=== PATIENT | male | born 1955 | race Caucasian/White ===

== ENCOUNTER 2019-12-08 01:22 | Observation (INO) | payer BC, OTHER ==
[2019-12-08] VITALS (12 sets, daily range): BP systolic 122–182; BP diastolic 77–103
[~2019-12-08] VITALS: Ht 180.3 cm; Wt 59.0 kg
[2019-12-08 01:18] LABS: BASOPHILS # (AUTO) 0.1 (0.0-0.1); BASOPHILS % 1.1 % (0.0-1.0); EOSINOPHILS # (AUTO) 0.3 (0.0-0.4); EOSINOPHILS % 5.5 % (0.0-6.0); HEMATOCRIT 44.9 % (38.2-49.6); HEMOGLOBIN 15.8 g/dL (14.0-18.0); LYMPHOCYTES # (AUTO) 1.2 (1.0-3.2); LYMPHOCYTES % 19.7 % (18.0-39.1); MEAN CORPUSCULAR HEMOGLOBIN 32.6 pg (28-32); MEAN CORPUSCULAR HGB CONC 35.2 g/dL (31-35); MEAN CORPUSCULAR VOLUME 92.8 fL (81-99); MONOCYTES # (AUTO) 0.7 (0.2-0.8); MONOCYTES % 11.1 % (4.4-11.3); NEUTROPHILS # (AUTO) 3.9 (2.1-6.9); NEUTROPHILS % 62.3 % (38.7-80.0); PLATELET COUNT 288 x10e3/uL (140-360); RED BLOOD COUNT 4.84 x10e6/uL (4.3-5.7); RED CELL DISTRIBUTION WIDTH 11.6 % (11.7-14.4)
[2019-12-08 01:32] LABS: INR 0.84; PARTIAL THROMBOPLASTIN TIME 29.9 seconds (23.8-35.5); PROTHROMBIN TIME 11.9 seconds (11.9-14.5)
[2019-12-08 01:40] LABS: ALANINE AMINOTRANSFERASE 12 IU/L (0-55); ALBUMIN 3.9 g/dL (3.5-5.0); ALBUMIN/GLOBULIN RATIO 1.4 (0.8-2.0); ALKALINE PHOSPHATASE 31 IU/L (40-150); ANION GAP 15.1 mmol/L (8-16); CALCIUM 9.4 mg/dL (8.4-10.2); CARBON DIOXIDE 26 mmol/L (22-29); CHLORIDE 99 mmol/L (98-107); CREATINE KINASE 130 IU/L (30-200); CREATININE, SERUM 0.82 mg/dL (0.72-1.25); EST GLOMERULAR FILTRATION RATE > 60 ML/MIN (60-); GLUCOSE 89 mg/dL (74-118); POTASSIUM 4.1 mmol/L (3.5-5.1); SODIUM 136 mmol/L (136-145)
[2019-12-08] MEDS ORDERED: ASPIRIN 81 MG CHEW TAB PO ONE (01:45)
[2019-12-08 01:52] LABS: BLOOD UREA NITROGEN 12 mg/dL (7-26); BUN/CREATININE RATIO 15 (6-25)
[2019-12-08] MEDS ORDERED: MORPHINE SULFATE 2 MG/ML SYR 1ML IV PRN (02:00)
[2019-12-08] MEDS ORDERED: SODIUM CHLORIDE FLUSH 10 ML SYR INJ PRN (02:00)
[2019-12-08] MEDS ORDERED: ONDANSETRON HCL INJ 2MG/ML 2ML 2 MG/ML VIAL IV PRN (02:00)
[2019-12-08] MEDS ORDERED: NITROGLYCERIN 0.4 MG SUBL SL PRN (02:00)
[2019-12-08] MEDS: FAMOTIDINE 20 MG/2 ML VIAL IV SCH ×2 (02:02→14:00)
[2019-12-08] MEDS: METOPROLOL TARTRATE 25 MG TAB PO SCH ×3 (02:02→17:14)
[2019-12-08] MEDS ORDERED: ACETAMINOPHEN 325 MG TAB PO PRN (05:45)
[2019-12-08] MEDS ORDERED: NIFEDIPINE CR 30 MG TAB PO SCH (05:45)
[2019-12-08] MEDS: NIFEDIPINE CR 30 MG TAB PO SCH ×3 (08:00→21:00)
[2019-12-08 08:28] LABS: CHOL/HDL RATIO 2.1 (3.9-4.7)
[2019-12-08] MEDS ORDERED: MELOXICAM 7.5 MG TAB PO SCH (09:00)
[2019-12-08] MEDS ORDERED: NICOTINE 21 MG/EA PATCH TOP SCH (09:00)
[2019-12-08] MEDS ORDERED: ASPIRIN 81 MG ENTERIC COATED PO SCH (09:00)
[2019-12-08] MEDS: ALPRAZOLAM 0.5 MG TAB PO SCH ×3 (09:23→21:00)
[2019-12-08 10:43] LABS: CREATINE KINASE MB 2.3 ng/mL (0-5.0)
[2019-12-08] MEDS ORDERED: ENOXAPARIN SOD INJ 40 MG/0.4 ML SYR SC SCH (17:00)
[2019-12-08 18:18] LABS: CREATINE KINASE MB 2.1 ng/mL (0-5.0)
[2019-12-08] MEDS ORDERED: NICOTINE PATCH1 EAC5 TOP (21:14)
[2019-12-08] MEDS ORDERED: MELOXICAM7.5 MG PO (21:14)
[2019-12-08] MEDS ORDERED: PROCARDIA XL30 MG PO (21:14)
[2019-12-08] MEDS ORDERED: ASPIRIN81 MG PO (21:14)
[2019-12-09] MEDS ORDERED: NICOTINE 21 MG TOP SCH (09:00)
[2019-12-09] MEDS ORDERED: ASPIRIN 81 MG CHEW TAB PO SCH (09:00)
[2019-12-09] MEDS ORDERED: NIFEDIPINE CR 30 MG TAB PO SCH (09:00)
[2019-12-09] MEDS ORDERED: MELOXICAM 7.5 MG TAB PO SCH (09:00)
== END 2019-12-08 22:12 | disposition home or self-care (01) ==
LOC: ER 01:33 → ERHOLD 02:23 → MED/SURG3 02:28
PROVIDERS: ADMIT Internal Medicine; ATTEND Internal Medicine
DX: R07.89 Other chest pain (principal); F17.200 Nicotine dependence, unspecified, uncomplicated; R63.6 Underweight; Z68.1 Body mass index [BMI] 19.9 or less, adult; Z11.59 Encounter for screening for other viral diseases
CPT/HCPCS: 36415; 71045; 80053; 80061; 82550; 82553; 84484; 85025; 85610; 85730; 93306; 99284; G0378; J1650; U0002

== ENCOUNTER 2020-01-30 14:10 | Inpatient (IN) | payer OTHER ==
[~2020-01-30] VITALS: Ht 180.3 cm; Wt 63.5 kg
[~2020-01-30 14:10] MED LIST: ASPIRIN81 MG PO; MELOXICAM7.5 MG PO; NICOTINE PATCH1 EAC5 TOP; PROCARDIA XL30 MG PO
[2020-01-30] MEDS ORDERED: SODIUM CHLORIDE 0.9% 1000ML 1,000 ML IV STA (14:20)
[2020-01-30] MEDS ORDERED: CLOPIDOGREL BISULFATE 75 MG TAB PO NR (14:30)
[2020-01-30] MEDS ORDERED: ONDANSETRON HCL INJ 2MG/ML 2ML 2 MG/ML VIAL IV NR (14:30)
[2020-01-30] MEDS ORDERED: ASPIRIN 81 MG CHEW TAB PO ONE (14:30)
[2020-01-30] MEDS ORDERED: MORPHINE SULFATE INJ 2 MG/ML SYR IV NR (14:30)
[2020-01-30 14:31] LABS: BASOPHILS # (AUTO) 0.1 (0.0-0.1); BASOPHILS % 0.4 % (0.0-1.0); EOSINOPHILS # (AUTO) 0.1 (0.0-0.4); EOSINOPHILS % 0.6 % (0.0-6.0); HEMATOCRIT 33.5 % (38.2-49.6); LYMPHOCYTES # (AUTO) 0.5 (1.0-3.2); LYMPHOCYTES % 4.6 % (18.0-39.1); MEAN CORPUSCULAR HEMOGLOBIN 31.3 pg (28-32); MEAN CORPUSCULAR HGB CONC 35.8 g/dL (31-35); MEAN CORPUSCULAR VOLUME 87.5 fL (81-99); MONOCYTES # (AUTO) 0.7 (0.2-0.8); MONOCYTES % 6.4 % (4.4-11.3); NEUTROPHILS % 87.6 % (38.7-80.0); PLATELET COUNT 309 x10e3/uL (140-360); RED BLOOD COUNT 3.83 x10e6/uL (4.3-5.7); RED CELL DISTRIBUTION WIDTH 12.7 % (11.7-14.4)
[2020-01-30] MEDS ORDERED: HYDROMORPHONE 1MG/1ML INJ IV STA (14:34)
[2020-01-30] MEDS ORDERED: HEPARIN SOD (PORCINE) 1000 UNIT/ML 30ML ONE (14:39)
[2020-01-30] MEDS ORDERED: MORPHINE SULFATE INJ 4 MG/ML INJ 1ML ONE (14:39)
[2020-01-30] MEDS ORDERED: ONDANSETRON HCL INJ 2MG/ML 2ML 2 MG/ML VIAL ONE (14:39)
[2020-01-30] MEDS ORDERED: LIDOCAINE HCL 2% LOCAL 20 ML VIAL ONE (14:40)
[2020-01-30] MEDS ORDERED: FENTANYL CITRATE/PF 100MCG/2 ML INJ ONE (14:40)
[2020-01-30] MEDS ORDERED: MIDAZOLAM HCL 2 MG/2 ML VIAL ONE (14:40)
[2020-01-30] MEDS ORDERED: SODIUM CHLORIDE 0.9% 50ML 50 ML ONE (14:40)
[2020-01-30] MEDS ORDERED: BIVALRIUDIN 250 MG/VIAL VIAL IV ONE (14:40)
[2020-01-30 14:41] LABS: INR 0.89; PROTHROMBIN TIME 12.5 seconds (11.9-14.5)
[2020-01-30] MEDS ORDERED: IOPAMIDOL 370 MG/ML 200 ML INFUS..BTL INJ ONE (14:41)
[2020-01-30] MEDS ORDERED: HEPARIN SOD/SOD CHLORIDE 2,000 ML ONE (14:41)
[2020-01-30 14:43] LABS: PARTIAL THROMBOPLASTIN TIME 22.9 seconds (23.8-35.5)
[2020-01-30] MEDS ORDERED: SODIUM CHLORIDE 0.9% 1000ML 1,000 ML ONE (14:44)
[2020-01-30 14:50] LABS: ALANINE AMINOTRANSFERASE 14 IU/L (0-55); ALBUMIN 4.1 g/dL (3.5-5.0); ALBUMIN/GLOBULIN RATIO 1.6 (0.8-2.0); ALKALINE PHOSPHATASE 12 IU/L (40-150); ANION GAP 16.8 mmol/L (8-16); BLOOD UREA NITROGEN 7 mg/dL (7-26); BUN/CREATININE RATIO 7 (6-25); CALCIUM 9.2 mg/dL (8.4-10.2); CARBON DIOXIDE 23 mmol/L (22-29); CHLORIDE 99 mmol/L (98-107); CREATINE KINASE 118 IU/L (30-200); CREATININE, SERUM 0.98 mg/dL (0.72-1.25); EST GLOMERULAR FILTRATION RATE > 60 ML/MIN (60-); GLUCOSE 158 mg/dL (74-118); MAGNESIUM 1.4 MG/DL (1.3-2.1); POTASSIUM 3.8 mmol/L (3.5-5.1); SODIUM 135 mmol/L (136-145)
[2020-01-30] MEDS ORDERED: EPTIFIBATIDE 75mg 100ML 100 ML ONE (15:08)
[2020-01-30] MEDS ORDERED: EPTIFIBATIDE 20 ML ONE (15:08)
[2020-01-30] MEDS ORDERED: CEFAZOLIN SOD 2 GM/D5W 50ML 50 ML IV ONE (16:19)
[2020-01-30] MEDS ORDERED: EPTIFIBATIDE 2 MG/1 ML 10ML VIAL IV ONE (17:00)
[2020-01-30] MEDS: METOPROLOL TARTRATE 25 MG TAB PO SCH (17:00)
[2020-01-30] MEDS ORDERED: HYDROCODONE/APAP 5MG-325MG TAB PO PRN (17:00)
[2020-01-30] MEDS ORDERED: ACETAMINOPHEN 325 MG TAB PO PRN (17:00)
[2020-01-30 17:30] VITALS: BP 100/74
[2020-01-30 18:12] VITALS: BP 100/74
[2020-01-30 18:15] VITALS: BP 100/74
[2020-01-30 18:37] LABS: CREATINE KINASE MB 186.7 ng/mL (0-5.0)
[2020-01-30 20:00] VITALS: BP 84/67
[2020-01-30] MEDS ORDERED: ZOLPIDEM TARTRATE 5 MG TAB PO PRN (21:00)
[2020-01-30] MEDS: ATORVASTATIN 20 MG TAB PO SCH (21:42)
[2020-01-30 21:45] VITALS: BP 84/67
[2020-01-31] VITALS (8 sets, daily range): BP systolic 94–116; BP diastolic 65–80
[2020-01-31 04:38] LABS: BASOPHILS % 0.3 % (0.0-1.0); EOSINOPHILS # (AUTO) 0.2 (0.0-0.4); EOSINOPHILS % 1.5 % (0.0-6.0); HEMATOCRIT 29.1 % (38.2-49.6); HEMOGLOBIN 10.3 g/dL (14.0-18.0); LYMPHOCYTES # (AUTO) 0.5 (1.0-3.2); LYMPHOCYTES % 5.1 % (18.0-39.1); MEAN CORPUSCULAR HEMOGLOBIN 32.4 pg (28-32); MEAN CORPUSCULAR HGB CONC 35.4 g/dL (31-35); MEAN CORPUSCULAR VOLUME 91.5 fL (81-99); MONOCYTES # (AUTO) 0.7 (0.2-0.8); NEUTROPHILS # (AUTO) 8.9 (2.1-6.9); NEUTROPHILS % 85.8 % (38.7-80.0); PLATELET COUNT 250 x10e3/uL (140-360); RED BLOOD COUNT 3.18 x10e6/uL (4.3-5.7); RED CELL DISTRIBUTION WIDTH 12.8 % (11.7-14.4)
[2020-01-31 04:59] LABS: ALANINE AMINOTRANSFERASE 44 IU/L (0-55); ALBUMIN 3.1 g/dL (3.5-5.0); ALBUMIN/GLOBULIN RATIO 1.3 (0.8-2.0); ALKALINE PHOSPHATASE 13 IU/L (40-150); ANION GAP 11.8 mmol/L (8-16); BLOOD UREA NITROGEN 7 mg/dL (7-26); BUN/CREATININE RATIO 9 (6-25); CALCIUM 8.2 mg/dL (8.4-10.2); CARBON DIOXIDE 24 mmol/L (22-29); CHLORIDE 103 mmol/L (98-107); CHOL/HDL RATIO 3.1 (3.9-4.7); CHOLESTEROL 143 MD/DL (0-199); CREATINE KINASE 2197 IU/L (30-200); CREATININE, SERUM 0.78 mg/dL (0.72-1.25); EST GLOMERULAR FILTRATION RATE > 60 ML/MIN (60-); GLUCOSE 107 mg/dL (74-118); HDL CHOLESTEROL 46 MG/DL (40-60); LDL CHOLESTEROL 72 MG/DL (60-130); POTASSIUM 3.8 mmol/L (3.5-5.1); SODIUM 135 mmol/L (136-145); TRIGLYCERIDES 123 MG/DL (0-149)
[2020-01-31] MEDS: METOPROLOL TARTRATE 25 MG TAB PO SCH ×2 (09:00→17:07)
[2020-01-31] MEDS: LOSARTAN POTASSIUM 100 MG TAB PO SCH ×2 (09:00→10:35)
[2020-01-31] MEDS: CLOPIDOGREL BISULFATE 75 MG TAB PO SCH (10:30)
[2020-01-31 14:51] LABS: CREATINE KINASE MB 102.4 ng/mL (0-5.0)
[2020-01-31] MEDS: ASPIRIN 81 MG ENTERIC COATED PO SCH (15:53)
[2020-01-31] MEDS: ATORVASTATIN 20 MG TAB PO SCH (21:06)
[2020-02-01 00:41] VITALS: BP 101/70
[2020-02-01 04:00] VITALS: BP 119/84
[2020-02-01 05:52] LABS: BASOPHILS % 0.3 % (0.0-1.0); EOSINOPHILS # (AUTO) 0.3 (0.0-0.4); EOSINOPHILS % 3.7 % (0.0-6.0); HEMATOCRIT 29.7 % (38.2-49.6); HEMOGLOBIN 10.5 g/dL (14.0-18.0); LYMPHOCYTES # (AUTO) 0.8 (1.0-3.2); MEAN CORPUSCULAR HEMOGLOBIN 31.6 pg (28-32); MEAN CORPUSCULAR HGB CONC 35.4 g/dL (31-35); MEAN CORPUSCULAR VOLUME 89.5 fL (81-99); MONOCYTES # (AUTO) 0.9 (0.2-0.8); MONOCYTES % 11.3 % (4.4-11.3); NEUTROPHILS # (AUTO) 5.8 (2.1-6.9); NEUTROPHILS % 74.4 % (38.7-80.0); PLATELET COUNT 268 x10e3/uL (140-360); RED BLOOD COUNT 3.32 x10e6/uL (4.3-5.7); RED CELL DISTRIBUTION WIDTH 12.5 % (11.7-14.4)
[2020-02-01 06:18] LABS: ANION GAP 12.7 mmol/L (8-16); BLOOD UREA NITROGEN 8 mg/dL (7-26); BUN/CREATININE RATIO 10 (6-25); CALCIUM 8.3 mg/dL (8.4-10.2); CARBON DIOXIDE 25 mmol/L (22-29); CHLORIDE 100 mmol/L (98-107); CREATININE, SERUM 0.84 mg/dL (0.72-1.25); EST GLOMERULAR FILTRATION RATE > 60 ML/MIN (60-); GLUCOSE 107 mg/dL (74-118); MAGNESIUM 1.7 MG/DL (1.3-2.1); POTASSIUM 3.7 mmol/L (3.5-5.1); SODIUM 134 mmol/L (136-145)
[2020-02-01] MEDS ORDERED: PANTOPRAZOLE SOD 40 MG TABEC PO SCH (07:30)
[2020-02-01 07:53] VITALS: BP 120/79
[2020-02-01] MEDS: CLOPIDOGREL BISULFATE 75 MG TAB PO SCH (08:21)
[2020-02-01] MEDS: METOPROLOL TARTRATE 25 MG TAB PO SCH (08:21)
[2020-02-01] MEDS: ASPIRIN 81 MG ENTERIC COATED PO SCH (08:21)
[2020-02-01] MEDS: LOSARTAN POTASSIUM 100 MG TAB PO SCH (08:21)
[2020-02-01] MEDS ORDERED: ASPIRIN 81 MG ENTERIC COATED PO SCH (09:00)
[2020-02-01 09:02] VITALS: BP 120/79
[2020-02-01 12:18] VITALS: BP 96/64
[2020-02-01] MEDS ORDERED: LOPRESSOR25 MG PO (12:47)
[2020-02-01] MEDS ORDERED: LIPITOR20 MG PO (12:47)
[2020-02-01] MEDS ORDERED: PROTONIX40 MG/ML PO (12:47)
[2020-02-01] MEDS ORDERED: COZAAR100 MG PO (12:47)
[2020-02-01] MEDS ORDERED: ASPIRIN EC81 MG PO (12:47)
== END 2020-02-01 14:06 | disposition home or self-care (01) | DRG 246 ==
LOC: ER 14:24 → ERHOLD 15:02 → CATH LAB V 15:10 → IMCU 16:59 → MED/SURG2 01-31 16:07
PROVIDERS: ADMIT Internal Medicine; ATTEND Internal Medicine
PROC: 027035Z Dilation of Coronary Artery, One Artery with Two Drug-eluting Intraluminal Devices, Percutaneous Approach (ICD-10-PCS; principal; 2020-01-30)
PROC: 4A023N7 Measurement of Cardiac Sampling and Pressure, Left Heart, Percutaneous Approach (ICD-10-PCS; 2020-01-30)
PROC: B2111ZZ Fluoroscopy of Multiple Coronary Arteries using Low Osmolar Contrast (ICD-10-PCS; 2020-01-30)
PROC: B2151ZZ Fluoroscopy of Left Heart using Low Osmolar Contrast (ICD-10-PCS; 2020-01-30)
DX: I21.09 ST elevation (STEMI) myocardial infarction involving other coronary artery of anterior wall (principal); R57.0 Cardiogenic shock; F17.210 Nicotine dependence, cigarettes, uncomplicated; I10 Essential (primary) hypertension; E78.5 Hyperlipidemia, unspecified; D63.8 Anemia in other chronic diseases classified elsewhere; Z20.828 Contact with and (suspected) exposure to other viral communicable diseases
CPT/HCPCS: 36415; 71045; 80048; 80053; 80061; 82550; 82553; 83735; 84484; 85025; 85610; 85730; 92928; 93005; 93306; 93454; 99152; 99153; 99284; C1725; C1760; C1769; C1874; C1876; C1887; J0583; J0690; J1170; J1327; J1644; J2001; J2250; J2270; J2405; J3010; J7030; Q9967; U0002

== ENCOUNTER 2020-10-16 12:32 | Inpatient (IN) | payer MEDICARE, OTHER ==
[~2020-10-16] VITALS: Ht 177.8 cm; Wt 61.2 kg
[~2020-10-16 12:32] MED LIST changes: +ASPIRIN EC81 MG PO; +COZAAR100 MG PO; +LIPITOR20 MG PO; +LOPRESSOR25 MG PO; +PROTONIX40 MG/ML PO
[2020-10-16] MEDS ORDERED: SODIUM CHLORIDE 0.9% 1000ML 1,000 ML IV STA (12:45)
[2020-10-16] MEDS ORDERED: SODIUM CHLORIDE 0.9% 1000ML 1,000 ML IV SCH (13:15)
[2020-10-16 13:31] LABS: BASOPHILS # (AUTO) 0.1 (0.0-0.1); BASOPHILS % 1.1 % (0.0-1.0); EOSINOPHILS # (AUTO) 0.1 (0.0-0.4); EOSINOPHILS % 0.9 % (0.0-6.0); HEMATOCRIT 36.4 % (38.2-49.6); HEMOGLOBIN 12.9 g/dL (14.0-18.0); LYMPHOCYTES # (AUTO) 0.9 (1.0-3.2); LYMPHOCYTES % 17.5 % (18.0-39.1); MEAN CORPUSCULAR HEMOGLOBIN 32.9 pg (28-32); MEAN CORPUSCULAR HGB CONC 35.4 g/dL (31-35); MEAN CORPUSCULAR VOLUME 92.9 fL (81-99); MONOCYTES # (AUTO) 0.6 (0.2-0.8); MONOCYTES % 10.3 % (4.4-11.3); NEUTROPHILS # (AUTO) 3.7 (2.1-6.9); NEUTROPHILS % 69.6 % (38.7-80.0); PLATELET COUNT 498 x10e3/uL (140-360); RED BLOOD COUNT 3.92 x10e6/uL (4.3-5.7)
[2020-10-16 13:52] LABS: ALBUMIN 4.1 g/dL (3.5-5.0); ALBUMIN/GLOBULIN RATIO 1.1 (0.8-2.0); ANION GAP 23.5 mmol/L (8-16); CALCIUM 9.2 mg/dL (8.4-10.2); CREATININE, SERUM 1.03 mg/dL (0.72-1.25); POTASSIUM 4.5 mmol/L (3.5-5.1)
[2020-10-16 13:57] LABS: INR 0.89; PROTHROMBIN TIME 12.2 seconds (11.9-14.5)
[2020-10-16 13:58] LABS: PARTIAL THROMBOPLASTIN TIME 30.1 seconds (23.8-35.5)
[2020-10-16] MEDS ORDERED: SODIUM CHLORIDE 0.9% 50ML 50 ML ONE (14:42)
[2020-10-16] MEDS ORDERED: IOPAMIDOL 370 MG/ML 200 ML INFUS..BTL INJ ONE (14:42)
[2020-10-16] MEDS ORDERED: MULTIVITAMINS- 12 INJECTION 10 ML, FOLIC ACID MDV 1 MG, THIAMINE HCL INJ 100 MG in SODI... IV ONE (15:00)
[2020-10-16] MEDS ORDERED: PIPERACILLIN/TAZOBACTAM 3.375 GM in SODIUM CHLORIDE 0.9% 50ML 50 ML IV SCH (16:45)
[2020-10-16 21:01] VITALS: BP 159/94
[2020-10-16] MEDS ORDERED: NITROGLYCERIN0.4 MG SL (22:44)
[2020-10-16] MEDS ORDERED: CLOPIDOGREL75 MG PO (22:44)
[2020-10-16 22:51] VITALS: BP 159/94
[2020-10-17] VITALS (8 sets, daily range): BP systolic 125–158; BP diastolic 88–95
[2020-10-17] MEDS ORDERED: DOCUSATE SODIUM 100 MG CAP PO PRN (01:00)
[2020-10-17] MEDS ORDERED: ONDANSETRON HCL INJ 2MG/ML 2ML 2 MG/ML VIAL IV PRN (01:00)
[2020-10-17] MEDS ORDERED: POTASSIUM CHLORIDE 20 MEQ TAB CR PO PRN (01:00)
[2020-10-17] MEDS ORDERED: SIMETHICONE 80 MG CHEW PO PRN (01:00)
[2020-10-17] MEDS ORDERED: DEXTROSE 50% SYRINGE 50 ML IV PRN (01:00)
[2020-10-17] MEDS ORDERED: DIPHENHYDRAMINE HCL 25 MG CAP PO PRN (01:00)
[2020-10-17] MEDS ORDERED: LIDOCAINE 4% PATCH TP PRN (01:00)
[2020-10-17] MEDS ORDERED: HYDRALAZINE HCL 20 MG/ML VIAL IV PRN (01:00)
[2020-10-17] MEDS ORDERED: ALBUTEROL/IPRATROPIUM 3 ML NEB NEB PRN (01:00)
[2020-10-17] MEDS ORDERED: SODIUM CHLORIDE 0.9% 250ML 250 ML ONE (01:53)
[2020-10-17] MEDS: PIPERACILLIN/TAZOBACTAM 3.375 GM in SODIUM CHLORIDE 0.9% 50ML 50 ML IV SCH ×3 (01:59→16:00)
[2020-10-17 06:22] LABS: BASOPHILS # (AUTO) 0.1 (0.0-0.1); EOSINOPHILS # (AUTO) 0.1 (0.0-0.4); EOSINOPHILS % 2.2 % (0.0-6.0); HEMATOCRIT 26.3 % (38.2-49.6); HEMOGLOBIN 9.4 g/dL (14.0-18.0); LYMPHOCYTES # (AUTO) 0.6 (1.0-3.2); LYMPHOCYTES % 12.5 % (18.0-39.1); MEAN CORPUSCULAR HEMOGLOBIN 33.5 pg (28-32); MEAN CORPUSCULAR HGB CONC 35.7 g/dL (31-35); MEAN CORPUSCULAR VOLUME 93.6 fL (81-99); MONOCYTES # (AUTO) 0.7 (0.2-0.8); MONOCYTES % 14.2 % (4.4-11.3); NEUTROPHILS # (AUTO) 3.5 (2.1-6.9); NEUTROPHILS % 69.7 % (38.7-80.0); PLATELET COUNT 327 x10e3/uL (140-360); RED BLOOD COUNT 2.81 x10e6/uL (4.3-5.7); RED CELL DISTRIBUTION WIDTH 11.9 % (11.7-14.4)
[2020-10-17 07:01] LABS: ALBUMIN/GLOBULIN RATIO 1.2 (0.8-2.0); ANION GAP 14.8 mmol/L (8-16); CALCIUM 7.6 mg/dL (8.4-10.2); CREATININE, SERUM 0.78 mg/dL (0.72-1.25); POTASSIUM 3.8 mmol/L (3.5-5.1)
[2020-10-17 14:47] LABS: HEMATOCRIT 28.2 % (38.2-49.6); HEMOGLOBIN 9.8 g/dL (14.0-18.0)
[2020-10-17] MEDS ORDERED: PROPOFOL IV EMULSION 10 MG/ML 20 ML VIAL ONE (17:08)
[2020-10-17] MEDS: METOPROLOL TARTRATE 25 MG TAB PO SCH (18:13)
[2020-10-17] MEDS: MELATONIN 5 MG TABLET PO PRN (21:01)
[2020-10-17 21:36] LABS: HEMATOCRIT 25.1 % (38.2-49.6); HEMOGLOBIN 8.6 g/dL (14.0-18.0)
[2020-10-18] VITALS (7 sets, daily range): BP systolic 107–132; BP diastolic 62–83
[2020-10-18] MEDS: PIPERACILLIN/TAZOBACTAM 3.375 GM in SODIUM CHLORIDE 0.9% 50ML 50 ML IV SCH ×3 (00:50→16:37)
[2020-10-18 07:33] LABS: PHOSPHORUS 2.3 MG/DL (2.3-4.7)
[2020-10-18 07:39] LABS: HEMATOCRIT 23.8 % (38.2-49.6); HEMOGLOBIN 8.2 g/dL (14.0-18.0)
[2020-10-18 08:01] LABS: THYROID STIMULATING HORMONE 1.077 uIU/mL (0.350-4.940)
[2020-10-18 08:10] LABS: MAGNESIUM 1.1 MG/DL (1.3-2.1)
[2020-10-18] MEDS ORDERED: MAGNESIUM SULFATE 2GM/50ML 50 ML IV ONE (08:30)
[2020-10-18] MEDS: METOPROLOL TARTRATE 25 MG TAB PO SCH ×2 (08:36→16:51)
[2020-10-18] MEDS ORDERED: HEPARIN SOD (PORCINE) 5,000 UNIT/ML VIAL ONE (10:00)
[2020-10-18 18:44] LABS: HEMATOCRIT 23.8 % (38.2-49.6); HEMOGLOBIN 8.1 g/dL (14.0-18.0)
[2020-10-18] MEDS: MELATONIN 5 MG TABLET PO PRN (21:14)
[2020-10-18 22:47] LABS: % IRON SATURATION 43 % (15-50); IRON 67 ug/dL (65-175); TOTAL IRON BINDING CAPACITY 157 ug/dL (261-478); TRANSFERRIN 112 mg/dL (174-364)
[2020-10-19] VITALS (10 sets, daily range): BP systolic 108–126; BP diastolic 66–85
[2020-10-19 07:17] LABS: EOSINOPHILS # (AUTO) 0.3 (0.0-0.4); EOSINOPHILS % 6.6 % (0.0-6.0); HEMATOCRIT 22.5 % (38.2-49.6); HEMOGLOBIN 7.8 g/dL (14.0-18.0); LYMPHOCYTES # (AUTO) 0.8 (1.0-3.2); LYMPHOCYTES % 20.5 % (18.0-39.1); MEAN CORPUSCULAR HEMOGLOBIN 33.2 pg (28-32); MEAN CORPUSCULAR HGB CONC 34.7 g/dL (31-35); MEAN CORPUSCULAR VOLUME 95.7 fL (81-99); MONOCYTES # (AUTO) 0.6 (0.2-0.8); MONOCYTES % 13.7 % (4.4-11.3); NEUTROPHILS # (AUTO) 2.4 (2.1-6.9); NEUTROPHILS % 57.5 % (38.7-80.0); PLATELET COUNT 366 x10e3/uL (140-360); RED BLOOD COUNT 2.35 x10e6/uL (4.3-5.7); RED CELL DISTRIBUTION WIDTH 11.9 % (11.7-14.4)
[2020-10-19 07:53] LABS: ALANINE AMINOTRANSFERASE 25 IU/L (0-55); ALBUMIN 2.8 g/dL (3.5-5.0); ALBUMIN/GLOBULIN RATIO 1.2 (0.8-2.0); ALKALINE PHOSPHATASE 24 IU/L (40-150); ANION GAP 10.1 mmol/L (8-16); CALCIUM 7.9 mg/dL (8.4-10.2); CARBON DIOXIDE 27 mmol/L (22-29); CHLORIDE 98 mmol/L (98-107); CREATININE, SERUM 0.82 mg/dL (0.72-1.25); EST GLOMERULAR FILTRATION RATE 94 ML/MIN (60-); GLUCOSE 108 mg/dL (74-118); PHOSPHORUS 3.2 MG/DL (2.3-4.7); POTASSIUM 4.1 mmol/L (3.5-5.1); SODIUM 131 mmol/L (136-145)
[2020-10-19 07:56] LABS: BUN/CREATININE RATIO 6 (6-25)
[2020-10-19 08:04] LABS: MAGNESIUM 1.1 MG/DL (1.3-2.1)
[2020-10-19 08:09] LABS: BLOOD UREA NITROGEN < 5 mg/dL (7-26)
[2020-10-19] MEDS: METOPROLOL TARTRATE 25 MG TAB PO SCH ×2 (09:12→17:58)
[2020-10-19] MEDS: PIPERACILLIN/TAZOBACTAM 3.375 GM in SODIUM CHLORIDE 0.9% 50ML 50 ML IV SCH ×4 (09:12→16:16)
[2020-10-19] MEDS ORDERED: MAGNESIUM SULFATE 2GM/50ML 50 ML IV ONE (11:30)
[2020-10-19] MEDS: ACETAMINOPHEN 325 MG TAB PO PRN (20:03)
[2020-10-20] VITALS: BP 101/73
[2020-10-20] MEDS: PIPERACILLIN/TAZOBACTAM 3.375 GM in SODIUM CHLORIDE 0.9% 50ML 50 ML IV SCH ×3 (00:45→16:21)
[2020-10-20 04:00] VITALS: BP 110/76
[2020-10-20 08:45] VITALS: BP 115/97
[2020-10-20 08:53] LABS: POTASSIUM 4.3 mmol/L (3.5-5.1)
[2020-10-20 08:54] LABS: ANION GAP 13.3 mmol/L (8-16); CREATININE, SERUM 0.9 mg/dL (0.72-1.25)
[2020-10-20] MEDS: IRON-VITAMIN-MINERAL CAPSULE PO SCH ×2 (09:00→16:21)
[2020-10-20] MEDS: METOPROLOL TARTRATE 25 MG TAB PO SCH ×2 (09:00→16:27)
[2020-10-20 09:25] VITALS: BP 115/97
[2020-10-20 10:20] LABS: BASOPHILS % 0.6 % (0.0-1.0); EOSINOPHILS # (AUTO) 0.3 (0.0-0.4); EOSINOPHILS % 5.2 % (0.0-6.0); HEMATOCRIT 23.3 % (38.2-49.6); HEMOGLOBIN 7.8 g/dL (14.0-18.0); LYMPHOCYTES # (AUTO) 0.7 (1.0-3.2); LYMPHOCYTES % 14.6 % (18.0-39.1); MEAN CORPUSCULAR HEMOGLOBIN 33.1 pg (28-32); MEAN CORPUSCULAR HGB CONC 33.5 g/dL (31-35); MEAN CORPUSCULAR VOLUME 98.7 fL (81-99); MONOCYTES # (AUTO) 0.6 (0.2-0.8); MONOCYTES % 12.3 % (4.4-11.3); NEUTROPHILS # (AUTO) 3.2 (2.1-6.9); NEUTROPHILS % 66.7 % (38.7-80.0); PLATELET COUNT 334 x10e3/uL (140-360); RED BLOOD COUNT 2.36 x10e6/uL (4.3-5.7); RED CELL DISTRIBUTION WIDTH 12.3 % (11.7-14.4)
[2020-10-20 17:27] VITALS: BP 130/74
[2020-10-20] MEDS: ACETAMINOPHEN 325 MG TAB PO PRN (20:07)
[2020-10-20] MEDS: MELATONIN 5 MG TABLET PO PRN (20:07)
[2020-10-21] VITALS (7 sets, daily range): BP systolic 106–130; BP diastolic 66–83
[2020-10-21] MEDS: PIPERACILLIN/TAZOBACTAM 3.375 GM in SODIUM CHLORIDE 0.9% 50ML 50 ML IV SCH ×3 (01:08→16:21)
[2020-10-21 06:22] LABS: BASOPHILS % 0.5 % (0.0-1.0); EOSINOPHILS # (AUTO) 0.3 (0.0-0.4); EOSINOPHILS % 6.8 % (0.0-6.0); HEMATOCRIT 21.7 % (38.2-49.6); HEMOGLOBIN 7.8 g/dL (14.0-18.0); LYMPHOCYTES # (AUTO) 0.8 (1.0-3.2); LYMPHOCYTES % 18.7 % (18.0-39.1); MEAN CORPUSCULAR HEMOGLOBIN 35.8 pg (28-32); MEAN CORPUSCULAR HGB CONC 35.9 g/dL (31-35); MEAN CORPUSCULAR VOLUME 99.5 fL (81-99); MONOCYTES # (AUTO) 0.7 (0.2-0.8); MONOCYTES % 15.2 % (4.4-11.3); NEUTROPHILS # (AUTO) 2.5 (2.1-6.9); NEUTROPHILS % 58.1 % (38.7-80.0); PLATELET COUNT 395 x10e3/uL (140-360); RED BLOOD COUNT 2.18 x10e6/uL (4.3-5.7); RED CELL DISTRIBUTION WIDTH 12.9 % (11.7-14.4)
[2020-10-21 06:54] LABS: ANION GAP 11.8 mmol/L (8-16); CALCIUM 8.1 mg/dL (8.4-10.2); CREATININE, SERUM 0.91 mg/dL (0.72-1.25); POTASSIUM 3.8 mmol/L (3.5-5.1)
[2020-10-21] MEDS: IRON-VITAMIN-MINERAL CAPSULE PO SCH (09:20)
[2020-10-21] MEDS: METOPROLOL TARTRATE 25 MG TAB PO SCH ×2 (09:21→16:21)
[2020-10-21] MEDS ORDERED: PANTOPRAZOLE SO40 MG PO (17:30)
== END 2020-10-21 18:15 | disposition home or self-care (01) | DRG 368 ==
LOC: ER 12:37 → ERHOLD 17:11 → MED/SURG 21:30
PROVIDERS: ADMIT Internal Medicine; ATTEND Internal Medicine
PROC: 0DB78ZX Excision of Stomach, Pylorus, Via Natural or Artificial Opening Endoscopic, Diagnostic (ICD-10-PCS; 2020-10-17)
PROC: 0DB68ZX Excision of Stomach, Via Natural or Artificial Opening Endoscopic, Diagnostic (ICD-10-PCS; principal; 2020-10-17 15:00)
DX: K20.91 Esophagitis, unspecified with bleeding (principal); K29.71 Gastritis, unspecified, with bleeding; D62 Acute posthemorrhagic anemia; K86.2 Cyst of pancreas; K44.9 Diaphragmatic hernia without obstruction or gangrene; K52.9 Noninfective gastroenteritis and colitis, unspecified; E78.5 Hyperlipidemia, unspecified; I10 Essential (primary) hypertension; F41.9 Anxiety disorder, unspecified; F10.10 Alcohol abuse, uncomplicated; F17.200 Nicotine dependence, unspecified, uncomplicated; I25.10 Atherosclerotic heart disease of native coronary artery without angina pectoris; I25.2 Old myocardial infarction; Z91.19 Patient's noncompliance with other medical treatment and regimen; Z83.3 Family history of diabetes mellitus; Z82.49 Family history of ischemic heart disease and other diseases of the circulatory system; Z88.5 Allergy status to narcotic agent; Z88.8 Allergy status to other drugs, medicaments and biological substances; Z95.5 Presence of coronary angioplasty implant and graft; E78.00 Pure hypercholesterolemia, unspecified; J44.9 Chronic obstructive pulmonary disease, unspecified; Z20.822 Contact with and (suspected) exposure to COVID-19
CPT/HCPCS: 36415; 43239; 71045; 74177; 74250; 78278; 78290; 80048; 80053; 82140; 82270; 82607; 82746; 83540; 83690; 83735; 84100; 84443; 84466; 84484; 85014; 85018; 85025; 85045; 85610; 85730; 86850; 86900; 88305; 88312; 93005; 96360; 99284; A9512; J1644; J2543; J3411; J3475; J7030; J7050; Q9967; U0002

== ENCOUNTER 2020-10-25 01:08 | Emergency (ER) | payer MEDICARE ==
[~2020-10-25] VITALS: Ht 177.8 cm; Wt 61.2 kg
[~2020-10-25 01:08] MED LIST changes: +CLOPIDOGREL75 MG PO; +NITROGLYCERIN0.4 MG SL; +PANTOPRAZOLE SO40 MG PO
[2020-10-25] MEDS ORDERED: FUROSEMIDE INJ 10 MG/ML 4 ML VIAL IV ONE (01:30)
[2020-10-25] MEDS ORDERED: FUROSEMIDE INJ 10 MG/ML 4 ML VIAL ONE ×2 (01:30→01:32)
[2020-10-25] MEDS ORDERED: NITROGLYCERIN 2% OINT 1 GM PKT TOP ONE (01:30)
[2020-10-25] MEDS ORDERED: NITROGLYCERIN 2% OINT 1 GM PKT ONE (01:31)
[2020-10-25 01:45] LABS: BASOPHILS # (AUTO) 0.1 (0.0-0.1); EOSINOPHILS # (AUTO) 0.5 (0.0-0.4); EOSINOPHILS % 4.5 % (0.0-6.0); HEMATOCRIT 32.4 % (38.2-49.6); LYMPHOCYTES # (AUTO) 2.6 (1.0-3.2); LYMPHOCYTES % 21.6 % (18.0-39.1); MEAN CORPUSCULAR HEMOGLOBIN 33.7 pg (28-32); MEAN CORPUSCULAR HGB CONC 30.9 g/dL (31-35); MEAN CORPUSCULAR VOLUME 109.1 fL (81-99); MONOCYTES # (AUTO) 1.1 (0.2-0.8); MONOCYTES % 9.6 % (4.4-11.3); NEUTROPHILS # (AUTO) 7.4 (2.1-6.9); NEUTROPHILS % 62.8 % (38.7-80.0); PLATELET COUNT 460 x10e3/uL (140-360); RED BLOOD COUNT 2.97 x10e6/uL (4.3-5.7); RED CELL DISTRIBUTION WIDTH 13.6 % (11.7-14.4)
[2020-10-25 01:53] LABS: INR 0.97; PROTHROMBIN TIME 13.1 seconds (11.9-14.5)
[2020-10-25 01:54] LABS: PARTIAL THROMBOPLASTIN TIME 29.2 seconds (23.8-35.5)
[2020-10-25 02:12] LABS: ALBUMIN 3.4 g/dL (3.5-5.0); ALBUMIN/GLOBULIN RATIO 1.1 (0.8-2.0); ANION GAP 18.9 mmol/L (8-16); CALCIUM 8.1 mg/dL (8.4-10.2); CREATININE, SERUM 1.24 mg/dL (0.72-1.25); POTASSIUM 3.9 mmol/L (3.5-5.1)
[2020-10-25 02:35] LABS: CREATINE KINASE MB 2.7 ng/mL (0-4.3)
[2020-10-25] MEDS ORDERED: ASPIRIN 81 MG CHEW TAB PO ONE (03:00)
[2020-10-25 04:55] LABS: CREATINE KINASE MB 1.7 ng/mL (0-5.0)
[2020-10-25 05:39] VITALS: BP 103/78
== END 2020-10-25 05:43 | disposition other institution (70) ==
LOC: ER 01:14
DX: R06.03 Acute respiratory distress (principal); I50.9 Heart failure, unspecified; I44.7 Left bundle-branch block, unspecified; I25.10 Atherosclerotic heart disease of native coronary artery without angina pectoris; I10 Essential (primary) hypertension; R73.9 Hyperglycemia, unspecified; Z20.822 Contact with and (suspected) exposure to COVID-19
CPT/HCPCS: 36415; 51700; 71045; 80053; 80320; 82550; 82553; 83605; 83880; 84484; 85025; 85610; 85730; 87040; 93005; 94660 ×2; 99285; J1940; U0002